=== PATIENT | female | born 1990 | race Caucasian/White ===

== ENCOUNTER 2016-10-16 20:27 | Emergency (ER) | payer OTHER ==
[~2016-10-16] VITALS: Ht 162.6 cm; Wt 63.6 kg
[2016-10-16] MEDS ORDERED: IBUPROFEN 800 MG TABLET PO ONE (21:45)
[2016-10-16 22:53] VITALS: BP 121/81
== END 2016-10-16 22:57 | disposition home or self-care (01) ==
LOC: EMS 20:29
DX: S60.011A Contusion of right thumb without damage to nail, initial encounter (principal); X58.XXXA Exposure to other specified factors, initial encounter; Y93.66 Activity, soccer; Y92.89 Other specified places as the place of occurrence of the external cause; Y99.8 Other external cause status
CPT/HCPCS: 99284